=== PATIENT | male | born 1960 | race Caucasian/White ===

== ENCOUNTER 2018-04-08 16:58 | Emergency (ER) | payer SELFPAY ==
[~2018-04-08] VITALS: Ht 175.3 cm; Wt 90.3 kg
[2018-04-08] MEDS ORDERED: HYDR200T81 PO (17:10)
[2018-04-08] MEDS ORDERED: METH40TA2 PO (17:10)
--- NOTE | 2018-04-08 17:30 | NUR ---
Patient is resting comfortably on gurney with eyes closed, easily arousable, calm & [email or web address].
--- NOTE | 2018-04-08 17:54 | NUR ---
IV removed. Catheter intact and site benign. Pressure and 4x4 gauze applied to site. No bleeding noted. Patient discharged to home in stable conditon and steady gait. Written and verbal after care instructions given. Patient verbalizes understanding of instructions.
--- NOTE | 2018-04-08 17:58 | NUR ---
Patient refused list of shelters, [id number], walked out of ER with steady gait.
== END 2018-04-08 17:58 | disposition home or self-care (01) ==
LOC: ER 17:00
DX: F11.10 Opioid abuse, uncomplicated (principal); Z88.0 Allergy status to penicillin; Z59.0 Homelessness
CPT/HCPCS: A4663